=== PATIENT | female | born 1985 | race Caucasian/White ===

== ENCOUNTER 2018-04-24 17:38 | Emergency (ER) | payer MEDICAID, OTHER ==
[2018-04-24 17:38] VITALS: BMI 33.4
[2018-04-24 18:31] VITALS: RESP 18; TEMP 98.6
--- NOTE | 2018-04-24 19:34 | ED PDOC ---
Arrival/HPI - General Chief Complaint: Finger,Hand,&Wrist Time Seen by Provider: 04/24/18 19:29 Historian: Patient - History of Present Illness Narrative History of Present Illness (Text): 04/24/18 19:32 32-year-old female presents today with right hand pain. Patient states that a wooden kitchen chair fell on her hand. Pt states she tried to catch the top of the chair before it hit the ground. Patient states she has pain to the entire hand with the greatest pain is over the right thumb. She denies numbness weakness or tingling in the extremity but is complaining of pain with attempted range of motion. She denies any wrist pain. No medications have been taken for pain at home incident occurred prior to arrival. Past Medical History - Provider Review Nursing Documentation Reviewed: Yes - Travel History Have you recently traveled outside [place] w/in the past 3 mons?: No - Cardiac Hx Cardiac Disorders: No - Pulmonary Hx Respiratory Disorders: No - Neurological Hx Neurological Disorder: No - HEENT Hx HEENT Disorder: No - Renal Hx Renal Disorder: No - Endocrine/Metabolic Hx Endocrine Disorders: Yes (hx of gestational DM) - Hematological/Oncological Hx Blood Disorders: No - Integumentary Hx Dermatological Disorder: No - Musculoskeletal/Rheumatological Hx Musculoskeletal Disorders: No - Gastrointestinal Hx Gastrointestinal Disorders: No - Genitourinary/Gynecological Hx Genitourinary Disorders: No - Psychiatric Hx Psychophysiologic Disorder: No Hx Substance Use: No - Surgical History Hx Appendectomy: Yes Hx Section: Yes Hx Cholecystectomy: Yes - Anesthesia Hx Anesthesia: Yes Hx Anesthesia Reactions: No Hx Malignant Hyperthermia: No Family/Social History - Physician Review Nursing Documentation Reviewed: Yes Family/Social History: Unknown Family HX Smoking Status: Never Smoked Hx Alcohol Use: No Hx Substance Use: No Allergies/Home Meds Allergies/Adverse Reactions: Allergies No Known Allergies Allergy (Verified 04/24/18 18:31) Review of Systems - Review of Systems Constitutional: absent: Fatigue, Fevers Respiratory: absent: SOB, Cough Cardiovascular: absent: Chest Pain, Palpitations Gastrointestinal: absent: Abdominal Pain, Nausea, Vomiting Musculoskeletal: Arthralgias Skin: absent: Rash, Pruritis Neurological: absent: Headache, Dizziness Psychiatric: absent: Anxiety, Depression Physical Exam Vital Signs Reviewed: Yes Vital Signs Temp Pulse Resp BP Pulse Ox 04/24/18 19:42 98.6 F 85 18 132/78 98 04/24/18 18:28 98.6 F 88 18 122/85 97 Temperature: Afebrile Blood Pressure: Normal Pulse: Regular Respiratory Rate: Normal Appearance: Positive for: Well-Appearing, Non-Toxic, Comfortable Pain Distress: None Mental Status: Positive for: Alert and Oriented X 3 - Systems Exam Head: Present: Atraumatic Respiratory/Chest: Present: Clear to Auscultation Cardiovascular: Present: Regular Rate and Rhythm Upper Extremity: Present: NORMAL PULSES, Tenderness (Right hand: Tenderness over the entire thumb and thenar eminence limited flexion and extension of the thumb at the MCP and IP joint. no wrist tenderness, no snuff box tenderness. no tenderness over 2-5th metacarpals; full rom of 2-5th fingers. no edema, no erythema; no ecchymosis. Sensation and distal pulses intact. Cap refill less than 2), Swelling, Neurovascularly Intact. No: Normal ROM, Erythema, Deformity Neurological: Present: GCS=15 Skin: Present: Warm, Dry, Normal Color Psychiatric: Present: Alert, Oriented x 3 Medical Decision Making ED Course and Treatment: 04/24/18 19:34 Patient nontoxic well-appearing in no distress with stable vital signs X-rays of the right hand; no fracture pt refused medications for pain. 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 Patient placed in volar splint and thumb spica I discussed all results with patient advised to followup with the orthopedist for the next 2 days. Return if symptoms worsen persist or new symptoms develop Patient verbalizes understanding of discharge instructions and need for immediate followup. all aspects of this case were discussed the attending of record. Impression: hand pain, thumb pain Motrin every 6 hours as needed for pain Rest, ice, compression, elevation Followup with the orthopedist/hand specialist within the next 2 days Followup with primary care physician within the next 2 days Return if any other concerning symptoms develop - RAD Interpretation Radiology Orders: 04/24/18 19:29 HAND RIGHT 3 VIEWS [RAD] Stat Procedures - Splinting Location: right hand Hand-Made Type: fiberglass Splint: thumb spica (and volar splint placed) Pre-Proc Neuro Vasc Exam: normal Post-Proc Neuro Vasc Exam: normal Disposition/Present on Arrival - Present on Arrival Any Indicators Present on Arrival: No History of DVT/PE: No History of Uncontrolled Diabetes: No Urinary Catheter: No History of Decub. Ulcer: No History Surgical Site Infection Following: None - Disposition Have Diagnosis and Disposition been Completed?: Yes Diagnosis: Hand injury Disposition: HOME/ ROUTINE Disposition Time: 19:34 Patient Plan: Discharge Patient Problems: Current Active Problems Problem Status Onset Hand injury Acute Condition: GOOD Additional Instructions: Motrin every 6 hours as needed for pain Rest, ice, compression, elevation Followup with the orthopedist/hand specialist within the next 2 days Followup with primary care physician within the next 2 days Return if any other concerning symptoms develop Prescriptions: Ibuprofen [Motrin] 600 mg PO Q6H PRN #20 tab PRN Reason: pain/fever reduction Referrals: Jc Ibarra MD [Primary Care Provider] - Follow up with primary Miguel Land MD [Staff Provider] - Follow up with primary Akhil Moscoso MD [Staff Provider] - Follow up with primary [facility] [Outside] - Follow up with primary Oskar Jett MD [Staff Provider] - Follow up with primary Forms: [employer] (Khmer), WORK NOTE
[2018-04-24 20:09] VITALS: BP 132/78; PULSE 85; O2SAT 98
--- NOTE | 2018-04-25 10:41 | RAD ---
PROCEDURE: Right Hand Radiographs. HISTORY: right hand pain greatest at thumb COMPARISON: None. FINDINGS: BONES: Bone alignment and mineralization are normal. There is no acute displaced fracture or bone destruction. JOINTS: Normal. No osteoarthritic changes. SOFT TISSUES: Normal. OTHER FINDINGS: None. IMPRESSION: No acute fracture or dislocation.
== END 2018-04-24 19:42 | disposition home or self-care (01) ==
LOC: ED 17:38
DX: S69.91XA Unspecified injury of right wrist, hand and finger(s), initial encounter (principal); W20.8XXA Other cause of strike by thrown, projected or falling object, initial encounter

== ENCOUNTER 2018-06-08 14:54 | Emergency (ER) | payer MEDICAID ==
[2018-06-08 16:11] VITALS: BMI 37.8
[2018-06-08 16:14] VITALS: RESP 16
[2018-06-08] MEDS ORDERED: Sodium Chloride 0.9% 1,000 ML IV STA (16:33)
--- NOTE | 2018-06-08 16:37 | ED PDOC ---
Arrival/HPI - General Chief Complaint: Fever Time Seen by Provider: 06/08/18 16:21 Historian: Patient - History of Present Illness Narrative History of Present Illness (Text): 06/08/18 16:35 32 y/o female, no significant pmh, nkda, c/o nasal congestion/coughing/fever and bodyache x 2 days. Pt. stated that she has nasal congestion, associated with dry coughing, admits fever with febrile 101.6F in the ER with no antipyretic brea en for the past 8 hours, admits bodyache, no recent traveling, no chest pain or shortness of breath, no palpitation, no rash, no other medical or psychological complaints. Past Medical History - Provider Review Nursing Documentation Reviewed: Yes - Cardiac Hx Cardiac Disorders: No - Pulmonary Hx Respiratory Disorders: No - Neurological Hx Neurological Disorder: No - HEENT Hx HEENT Disorder: No - Renal Hx Renal Disorder: No - Endocrine/Metabolic Hx Endocrine Disorders: Yes (hx of gestational DM) - Hematological/Oncological Hx Blood Disorders: No - Integumentary Hx Dermatological Disorder: No - Musculoskeletal/Rheumatological Hx Musculoskeletal Disorders: No - Gastrointestinal Hx Gastrointestinal Disorders: No - Genitourinary/Gynecological Hx Genitourinary Disorders: No - Psychiatric Hx Psychophysiologic Disorder: No Hx Substance Use: No - Surgical History Hx Appendectomy: Yes Hx Section: Yes Hx Cholecystectomy: Yes - Anesthesia Hx Anesthesia: Yes Hx Anesthesia Reactions: No Hx Malignant Hyperthermia: No Family/Social History - Physician Review Nursing Documentation Reviewed: Yes Family/Social History: Unknown Family HX Smoking Status: Never Smoked Hx Alcohol Use: No Hx Substance Use: No Allergies/Home Meds Allergies/Adverse Reactions: Allergies No Known Allergies Allergy (Verified 06/08/18 16:11) Review of Systems - Review of Systems Constitutional: Fatigue, Fevers Eyes: absent: Vision Changes ENT: Rhinorrhea, Sinus Congestion. absent: Hearing Changes, Sore Throat Respiratory: Cough. absent: SOB, Sputum, Wheezing Cardiovascular: absent: Chest Pain, Palpitations Gastrointestinal: absent: Abdominal Pain, Diarrhea, Vomiting Musculoskeletal: absent: Arthralgias, Back Pain Skin: absent: Rash, Pruritis Neurological: absent: Headache, Dizziness Psychiatric: absent: Anxiety, Depression, Suicidal Ideation Physical Exam Vital Signs Reviewed: Yes Vital Signs Temp Pulse Resp BP Pulse Ox 06/08/18 16:11 101.6 F H 107 H 16 102/58 L 100 Temperature: Febrile Blood Pressure: Normal Pulse: Tachycardic Respiratory Rate: Normal Appearance: Positive for: Well-Appearing, Non-Toxic Pain Distress: Moderate Mental Status: Positive for: Alert and Oriented X 3 - Systems Exam Head: Present: Atraumatic, Normocephalic, Other (+ttp on the frontal sinus) Pupils: Present: PERRL Extroacular Muscles: Present: EOMI Conjunctiva: Present: Normal Ears: Present: NORMAL TM, Normal Canal. No: Erythema Mouth: Present: Moist Mucous Membranes Pharnyx: No: ERYTHEMA, EXUDATE, TONSILS ENLARGED Nose (External): Present: Atraumatic. No: Abrasion, Contusion, Laceration Nose (Internal): Present: Normal Inspection, No Active Bleeding, Rhinorrhea. No: Septal Hematoma, Epistaxis Neck: Present: Normal Range of Motion, Trachea Midline. No: Meningeal Signs, MIDLINE TENDERNESS, Paraspinal Tenderness, Lymphadenopathy Respiratory/Chest: Present: Clear to Auscultation, Good Air Exchange. No: Respiratory Distress, Accessory Muscle Use, Wheezes, Decreased Breath Sounds, Rales, Retracting, Rhonchi Cardiovascular: Present: Regular Rate and Rhythm, Normal S1, S2. No: Murmurs Abdomen: No: Tenderness, Distention, Peritoneal Signs, Rebound, Guarding Back: Present: Normal Inspection. No: CVA Tenderness, Midline Tenderness, Paraspinal Tenderness, Pain with Leg Raise, Decubitus Ulcer Upper Extremity: Present: Normal Inspection. No: Cyanosis, Edema Lower Extremity: Present: Normal Inspection. No: Edema Neurological: Present: GCS=15, CN II-XII Intact, Speech Normal, Motor Func Grossly Intact, Gait Normal, Memory Normal Skin: Present: Warm, Dry, Normal Color. No: Rashes Psychiatric: Present: Alert, Oriented x 3, Normal Insight, Normal Concentration Medical Decision Making ED Course and Treatment: 06/08/18 16:38 -Labs/rapid flu/ua -CXR -IVF/tylenol -Observe and reassess 06/08/18 18:15 -CBC within normal limit -Pt. refused labs/radiology study, evaluation and IV medications including antibiotics/antiviral, stated that she has kids at home and have to go. I explained that leaving is not the definitive choice for standard of care, pt. verbally expressed understanding. -Pt. refused repeat vital signs as well. AMA ER The patient refuses to stay in the Emergency Room (ER) to continue the care and wishes to leave the emergency department against my medical advice. Patient was told that staying in the ER is necessary and a full explanation of the reasons why was given, and understood by the patient with alert and oriented x4. The risk of leaving were explained in laymans term and including but not limited to influenza, sinusitis, meningitis, sepsis, organ failure, influenza, disability, pain, worsening of condition, permanent disability and from an undiagnosed or untreated condition. The patient accepts these risks, and is in my judgment is competent and capable of understanding the clinical situation and explanation of the risk of leaving. The patient is able to verbally repeat me back the above explained risks and benefits back to me, and verbally expressed understanding. Patient was given the opportunity to ask questions and change mind. The patient was instructed regarding the best care for the present symptoms, and to follow up as soon as possible with the primary care doctor including specialist or return to the emergency department at any time for continuing care. You sign out against medical advice. You are given tamiflu/augmentin/claritin d24/tessolon/motrin but this is not the best standard of care. You are advised to stay in the hospital for blood work/xray/additional treatment but you declined. You can return to the ER anytime as you would like to for continuity of care. Please follow up with your own pmd and specialist within 1-2 days, return to the ER for any new or worsening signs or symptoms. - RAD Interpretation Radiology Orders: 06/08/18 16:33 CHEST TWO VIEWS (PA/LAT) [RAD] Stat Ordered but the patient declined. Heating And Ventilating Drafter: Radiologist - PA / CLASSIFIER TENDER / Resident Statement MD/DO has reviewed & agrees with the documentation as recorded. Disposition/Present on Arrival - Present on Arrival Any Indicators Present on Arrival: No History of DVT/PE: No History of Uncontrolled Diabetes: No Urinary Catheter: No History of Decub. Ulcer: No History Surgical Site Infection Following: None - Disposition Have Diagnosis and Disposition been Completed?: Yes Diagnosis: Flu-like symptoms, URI (upper respiratory infection), UTI (urinary tract infection), Non-compliance Disposition: AGAINST MEDICAL ADVICE Disposition Time: 18:16 Patient Problems: Current Active Problems Problem Status Onset Flu-like symptoms Acute Non-compliance Acute URI (upper respiratory infection) Acute UTI (urinary tract infection) Acute Condition: GOOD Additional Instructions: You sign out against medical advice. You are given tamiflu/augmentin/claritin d24/tessolon/motrin but this is not the best standard of care. You are advised to stay in the hospital for blood work/xray/additional treatment but you declined. You can return to the ER anytime as you would like to for continuity of care. Please follow up with your own pmd and specialist within 1-2 days, return to the ER for any new or worsening signs or symptoms. Prescriptions: Amoxicillin/Clavulanate [Augmentin 875 MG-125 MG] 1 tab PO BID #14 tab Benzonatate [Tessalon Perles] 100 mg PO TID PRN #30 sgl PRN Reason: Other Ibuprofen [Motrin] 600 mg PO QID PRN #30 tab PRN Reason: Other Loratadine/Pseudoephedrine [Claritin-D 24 Hour Tablet] 1 each PO DAILY PRN #7 tab.er.24h PRN Reason: Other Oseltamivir Phosphate [Tamiflu] 75 mg PO BID #10 capsule Referrals: Lucho Ventura MD [Staff Provider] - Follow up with primary Gustavo Chavarria DO [Doctor Osteopathy] - Follow up with primary [facility] [place] [Outside] - Follow up with primary Forms: [employer] ([place]), WORK NOTE
[2018-06-08 17:57] LABS: URINE BILIRUBIN NEGATIVE (NEGATIVE); URINE BLOOD TRACE-INTACT (NEGATIVE); URINE GLUCOSE (UA) NEGATIVE (NEGATIVE); URINE LEUKOCYTE ESTERASE MODERATE Leu/uL (NEGATIVE); URINE PROTEIN 30 mg/dL (<30 mg/dL); URINE UROBILINOGEN 0.2 E.U./dL (<1 E.U./dL)
[2018-06-08 17:59] LABS: BASO # 0.02 K/mm3 (0.0-2.0); BASO % 0.3 % (0.0-3.0); EOS % 0.3 % (1.5-5.0); GRAN # 5.49 (1.4-6.5); GRAN % 71.8 % (50.0-68.0); HEMOGLOBIN 12.4 g/dL (12.0-16.0); LYMPH # 1.6 (1.2-3.4); LYMPH % 21.2 % (22.0-35.0); MEAN CELL VOLUME 82.5 fl (80.0-105.0); MEAN CORPUSCULAR HEMOGLOBIN 26.7 pg (25.0-35.0); MEAN CORPUSCULAR HGB CONC 32.4 g/dl (31.0-37.0); MEAN PLATELET VOLUME 10.1 fl (7.0-11.0); MONO # 0.5 (0.1-0.6); MONO % 6.4 % (1.0-6.0); RBC 4.64 10^6/uL (3.5-6.1); RED CELL DISTRIBUTION WIDTH 14.5 % (11.5-14.5); WHITE BLOOD COUNT 7.6 10^3/ul (4.5-11.0)
[2018-06-08 18:03] LABS: URINE APPEARANCE CLEAR (CLEAR)
[2018-06-08 18:09] LABS: URINE AMORPHOUS SEDIMENT TRACE; URINE BACTERIA TRACE (NEG); URINE EPITHELIAL CELLS MANY /hpf (0-5)
[2018-06-08 18:41] VITALS: BP 111/60; PULSE 99; O2SAT 99
[2018-06-08 18:42] VITALS: TEMP 101
== END 2018-06-08 18:44 | disposition left against medical advice (07) ==
LOC: ED 14:54
DX: J11.1 Influenza due to unidentified influenza virus with other respiratory manifestations (principal); J06.9 Acute upper respiratory infection, unspecified; N39.0 Urinary tract infection, site not specified; Z91.19 Patient's noncompliance with other medical treatment and regimen
CPT/HCPCS: 81001; 85025; 87086; 87804; 96360; 99284; J7030

== ENCOUNTER 2018-08-17 15:30 | Emergency (ER) | payer MEDICAID ==
[2018-08-17 15:53] VITALS: BMI 35.1
[2018-08-17] MEDS ORDERED: Lactated Ringer's 1,000 ML IV STA (16:10)
[2018-08-17 16:28] VITALS: TEMP 98.2
[2018-08-17 17:11] LABS: BASO # 0.01 K/mm3 (0.0-2.0); BASO % 0.1 % (0.0-3.0); EOS % 0.3 % (1.5-5.0); GRAN # 9.3 (1.4-6.5); GRAN % 87.7 % (50.0-68.0); HEMOGLOBIN 13.1 g/dL (12.0-16.0); LYMPH # 0.9 (1.2-3.4); LYMPH % 8.8 % (22.0-35.0); MEAN CELL VOLUME 82.5 fl (80.0-105.0); MEAN CORPUSCULAR HGB CONC 32.7 g/dl (31.0-37.0); MEAN PLATELET VOLUME 9.4 fl (7.0-11.0); MONO # 0.3 (0.1-0.6); MONO % 3.1 % (1.0-6.0); RBC 4.86 10^6/uL (3.5-6.1); RED CELL DISTRIBUTION WIDTH 13.9 % (11.5-14.5); WHITE BLOOD COUNT 10.6 10^3/uL (4.5-11.0)
[2018-08-17 17:19] LABS: INR 0.92; PARTIAL THROMBOPLASTIN TIME 26.1 Seconds (25.1-36.5); PROTHROMBIN TIME 10.5 SECONDS (9.4-12.5)
[2018-08-17 17:25] LABS: ALB/GLOB RATIO 1.2 (1.1-1.8); ALBUMIN 4.1 g/dL (3.0-4.8); ALT/SGPT 30 U/L (7-56); AMYLASE 60 U/L (35-125); AST/SGOT 38 U/L (14-36); BLOOD UREA NITROGEN 19 mg/dL (7-21); GFR NON-AFRICAN AMERICAN > 60; LIPASE 37 U/L (23-300)
[2018-08-17 17:36] LABS: TROPONIN I < 0.01 ng/mL
[2018-08-17 18:08] LABS: URINE BILIRUBIN NEGATIVE (NEGATIVE); URINE BLOOD TRACE-INTACT (NEGATIVE); URINE GLUCOSE (UA) NEGATIVE (NEGATIVE); URINE LEUKOCYTE ESTERASE MODERATE Leu/uL (NEGATIVE); URINE PROTEIN NEGATIVE mg/dL (<30 mg/dL); URINE UROBILINOGEN 0.2 E.U./dL (<1 E.U./dL)
--- NOTE | 2018-08-17 18:08 | ED PDOC ---
Arrival/HPI - General Chief Complaint: Abdominal Pain Time Seen by Provider: 08/17/18 16:00 Historian: Patient - History of Present Illness Narrative History of Present Illness (Text): 33 y/o female with PMH of appendectomy, cholecystectomy presents to the ED c/o vomiting x 1 day. Patient had approximately 10 episodes of non-bloody, non- bilious vomiting this morning. Associated nausea, right flank pain, and epigastric and right sided abdominal pain. Having BM per baseline, last yesterday afternoon. Unable to tolerate PO. Denies fever, chills, diarrhea, chest pain, SOB, cough, sinus congestion, diaphoresis, palpitations, urinary symptoms, weakness, numbness, paresthesias, headache, pelvic pain, vaginal discharge, vaginal bleeding, or any other associated symptoms. Past Medical History - Provider Review Nursing Documentation Reviewed: Yes - Cardiac Hx Cardiac Disorders: No - Pulmonary Hx Respiratory Disorders: No - Neurological Hx Neurological Disorder: No - HEENT Hx HEENT Disorder: No - Renal Hx Renal Disorder: No - Endocrine/Metabolic Hx Endocrine Disorders: Yes (hx of gestational DM) - Hematological/Oncological Hx Blood Disorders: No - Integumentary Hx Dermatological Disorder: No - Musculoskeletal/Rheumatological Hx Musculoskeletal Disorders: No - Gastrointestinal Hx Gastrointestinal Disorders: No - Genitourinary/Gynecological Hx Genitourinary Disorders: No - Psychiatric Hx Psychophysiologic Disorder: No Hx Substance Use: No - Surgical History Hx Appendectomy: Yes Hx Section: Yes Hx Cholecystectomy: Yes - Anesthesia Hx Anesthesia: Yes Hx Anesthesia Reactions: No Hx Malignant Hyperthermia: No Family/Social History - Physician Review Nursing Documentation Reviewed: Yes Family/Social History: No Known Family HX Smoking Status: Never Smoked Hx Alcohol Use: No Hx Substance Use: No Allergies/Home Meds Allergies/Adverse Reactions: Allergies No Known Allergies Allergy (Verified 08/17/18 15:56) Review of Systems - Physician Review All systems were reviewed & negative as marked: Yes - Review of Systems Constitutional: Normal Eyes: Normal. absent: Vision Changes, Photophobia, Eye Pain, Other ENT: Normal. absent: Hearing Changes, Tinnitus, TMJ Pain, Voice Changes, Sore Throat, Rhinorrhea, Epistaxis, Sinus Congestion, Other Respiratory: Normal. absent: SOB, Cough, Sputum, Wheezing, Other Cardiovascular: Normal. absent: Chest Pain, Palpitations, Edema, Calf Pain, العر[place], Orthopnea, SY, Syncope, Other Gastrointestinal: Abdominal Pain, Nausea, Vomiting, Appetite Changes. absent: Stool Changes Genitourinary Female: Normal. absent: Dysuria, Frequency, Hematuria, Urine Output Changes, Vaginal Bleeding, Vaginal Discharge, Other Musculoskeletal: Back Pain Skin: Normal. absent: Rash, Pruritis, Skin Lesions, Laceration, Abscess, Ulcer, Cellulitis, Other Neurological: Normal. absent: Headache, Dizziness, Focal Weakness, Gait Changes, Speech Changes, SC, Facial Droop, DE, Disequilibrium, SE, Seizure, Other Endocrine: Normal Hemo/Lymphatic: Normal Psychiatric: Normal Physical Exam Vital Signs Reviewed: Yes Vital Signs Temp Pulse Resp BP Pulse Ox 08/17/18 16:27 98.2 F 120 H 99 H 138/84 100 08/17/18 15:53 120 H 18 138/84 98 Temperature: Afebrile Blood Pressure: Normal Pulse: Tachycardic Respiratory Rate: Normal Appearance: Positive for: Well-Appearing, Non-Toxic, Comfortable Pain Distress: None Mental Status: Positive for: Alert and Oriented X 3 - Systems Exam Head: Present: Atraumatic, Normocephalic Pupils: Present: PERRL Extroacular Muscles: Present: EOMI Conjunctiva: Present: Normal Mouth: Present: Moist Mucous Membranes Neck: Present: Normal Range of Motion. No: Meningeal Signs Respiratory/Chest: Present: Clear to Auscultation, Good Air Exchange. No: Respiratory Distress, Accessory Muscle Use Cardiovascular: Present: Regular Rate and Rhythm, Normal S1, S2, Peripheal Pulses Present. No: Murmurs Abdomen: Present: Tenderness (epigastric), Normal Bowel Sounds. No: Distention, Peritoneal Signs, Rebound, Guarding Back: Present: Normal Inspection, CVA Tenderness (bilateral; R>L) Upper Extremity: Present: Normal Inspection, Normal ROM, NORMAL PULSES, Neurovas cularly Intact, Capillary Refill < 2s. No: Cyanosis, Edema Lower Extremity: Present: Normal Inspection, NORMAL PULSES, Normal ROM, Neurovascularly Intact, Capillary Refill < 2 s. No: Edema Neurological: Present: GCS=15, CN II-XII Intact, Speech Normal, Motor Func Grossly Intact, Normal Sensory Function, Gait Normal Skin: Present: Warm, Dry, Normal Color. No: Rashes Lymphatic: No: Cervical Adenopathy Psychiatric: Present: Alert, Oriented x 3, Normal Insight, Normal Concentration, Normal Affect, Normal Mood Medical Decision Making ED Course and Treatment: Initial Plan: * CBC, CMP * Lipase * UA, urine culture * Cardiac Iso * EKG * CXR * CT Abd/Pelvis with IV contrast * IVF * Pepcid * Zofran 18:30 Patient reports resolution of her abdominal pain after medications. 19:30 Patient wishes to sign out AMA, pending EKG and CT Abd/Pelvis with IV contrast. States she has to go home to be with her children. UA shows moderate leuk esterase. Patient with CVA tenderness. Will empirically treat for pyelonephritis. 20:00 Patient left AMA. Risks of leaving discussed at length with patient, including , disability, and worsening of symptoms. Pt verbalized understanding and was given the opportunity to ask questions. Patient A&Ox3, capable of making informed decisions. Diagnostic testing results discussed with patient, and strict instructions given regarding importance of follow up, and signs to return to Emergency Department, to include desire for re-evaluation or any other new/worsening symptoms. Patient verbalizes understanding of discussion. Patient A&Ox3, ambulating with steady gait, tachycardic at discharge. - Lab Interpretations Lab Results: 08/17/18 17:04 08/17/18 17:04 Lab Results 08/17/18 17:04: Sodium 136, Potassium 4.0, Chloride 103, Carbon Dioxide 23, Anion Gap 15, BUN 19, Creatinine 0.5 L, Est GFR ( Amer) > 60, Est GFR (Non-Af Amer) > 60, Random Glucose 96, Calcium 9.0, Total Bilirubin 0.4, AST 38 H D, ALT 30, Alkaline Phosphatase 55, Lactate Dehydrogenase 373, Total Creatine Kinase 42, Troponin I < 0.01, Total Protein 7.6, Albumin 4.1, Globulin 3.5, Albumin/Globulin Ratio 1.2, Amylase 60, Lipase 37 08/17/18 17:04: PT 10.5, INR 0.92, APTT 26.1 08/17/18 17:04: WBC 10.6, RBC 4.86, Hgb 13.1, Hct 40.1, MCV 82.5, MCH 27.0, MCHC 32.7, RDW 13.9, Plt Count 410, MPV 9.4, Gran % 87.7 H, Lymph % (Auto) 8.8 L, [place] % (Auto) 3.1, Eos % (Auto) 0.3 L, Baso % (Auto) 0.1, Gran # 9.30 H, Lymph # (Auto) 0.9 L, [place] # (Auto) 0.3, Eos # (Auto) 0.0, Baso # (Auto) 0.01 I have reviewed the lab results: Yes - RAD Interpretation Radiology Orders: 08/17/18 16:11 CHEST PORTABLE [RAD] Stat 08/17/18 16:13 ABD & PELVIS IV CONTRAST ONLY [CT] Stat - Medication Orders Current Medication Orders: Lactated Ringer's (Lactated Ringer's) 1,000 mls @ 100 mls/hr IV .Q10H STA Stop: 08/18/18 02:09 Last Admin: 08/17/18 17:09 Dose: 100 mls/hr eMAR Start Stop Document 08/17/18 17:09 EB (Rec: 08/17/18 17:09 EB [facility] [id number]-) Intravenous Solution Start Date 08/17/18 Start Time 17:09 End Date 08/18/18 End time 03:09 Total Infusion Time 600 Discontinued Medications Famotidine (Pepcid) 20 mg IVP STAT STA Stop: 08/17/18 16:11 Last Admin: 08/17/18 16:38 Dose: 20 mg IVP Administration Document 08/17/18 16:38 EB (Rec: 08/17/18 16:38 EB [facility] [id number]-) Charges for Administration # of IVP Administrations 1 Ondansetron HCl (Zofran Inj) 4 mg IVP STAT STA Stop: 08/17/18 16:11 Last Admin: 08/17/18 16:38 Dose: 4 mg IVP Administration Document 08/17/18 16:38 EB (Rec: 08/17/18 16:38 [id number]-) Charges for Administration # of IVP Administrations 1 Disposition/Present on Arrival - Present on Arrival Any Indicators Present on Arrival: No History of DVT/PE: No History of Uncontrolled Diabetes: No Urinary Catheter: No History of Decub. Ulcer: No History Surgical Site Infection Following: None - Disposition Have Diagnosis and Disposition been Completed?: No Diagnosis: Abdominal pain, UTI (urinary tract infection) Disposition: AGAINST MEDICAL ADVICE Disposition Time: 20:00 Patient Plan: Discharge Patient Problems: Current Active Problems Problem Status Onset Abdominal pain Acute UTI (urinary tract infection) Acute Condition: GOOD Discharge Instructions (ExitCare): Leaving Against Medical Advice Additional Instructions: Take antibiotics as prescribed Followup with primary doctor as soon as possible Return to ER if you wish to be re-evaluated Prescriptions: Ciprofloxacin HCl [Cipro] 500 mg PO Q12H 10 Days #20 tablet Forms: [employer] (Citizen [place])
--- NOTE | 2018-08-17 18:10 | RAD ---
Date of service: 08/17/2018 HISTORY: epigastric abdominal pain COMPARISON: No prior. FINDINGS: LUNGS: No active pulmonary disease. PLEURA: No significant pleural effusion identified, no pneumothorax apparent. CARDIOVASCULAR: No aortic atherosclerotic calcification present. Normal cardiac size. No pulmonary vascular congestion. OSSEOUS STRUCTURES: No significant abnormalities. VISUALIZED UPPER ABDOMEN: Normal. OTHER FINDINGS: None. IMPRESSION: No active disease.
[2018-08-17 18:23] LABS: URINE APPEARANCE CLOUDY (CLEAR)
[2018-08-17 18:40] LABS: URINE AMORPHOUS SEDIMENT SMALL
[2018-08-17] MEDS ORDERED: Sodium Chloride 0.9% 1,000 ML IV STA (18:40)
[2018-08-18 03:44] VITALS: BP 125/89; PULSE 107; RESP 18; O2SAT 100
== END 2018-08-17 20:00 | disposition left against medical advice (07) ==
LOC: ED 15:30
DX: N39.0 Urinary tract infection, site not specified (principal); R10.13 Epigastric pain
CPT/HCPCS: 71045; 80053; 81001; 82150; 82550; 83615; 83690; 84484; 85025; 85610; 85730; 87086; 96361; 96374; 96375; 99285; J2405; J7030; J7120

== ENCOUNTER 2018-10-23 21:38 | Emergency (ER) | payer MEDICAID ==
[2018-10-23 21:38] VITALS: BMI 35.1
[2018-10-23 21:51] VITALS: RESP 18
--- NOTE | 2018-10-23 22:05 | ED PDOC ---
Arrival/HPI - General Chief Complaint: Flu-like Symptoms Time Seen by Provider: 10/23/18 21:54 Historian: Patient - History of Present Illness Narrative History of Present Illness (Text): 10/23/18 22:06 33 year old female, whose past medical history includes appendectomy and cholecystectomy, presents to the emergency department complaining of fever, body aches, and nausea since yesterday. Patient denies any sick contact or recent travel. Patient denies any chills, cough, URI, chest pain, shortness of breath, abdominal pain, vomiting, diarrhea, urinary symptoms, back pain, neck pain, headache, dizziness, or any other complaints. Time/Duration: 24 hours Symptom Onset: Gradual Symptom Course: Unchanged Activities at Onset: Light Context: Home Past Medical History - Provider Review Nursing Documentation Reviewed: Yes - Cardiac Hx Cardiac Disorders: No - Pulmonary Hx Respiratory Disorders: No - Neurological Hx Neurological Disorder: No - HEENT Hx HEENT Disorder: No - Renal Hx Renal Disorder: No - Endocrine/Metabolic Hx Endocrine Disorders: Yes (hx of gestational DM) - Hematological/Oncological Hx Blood Disorders: No - Integumentary Hx Dermatological Disorder: No - Musculoskeletal/Rheumatological Hx Musculoskeletal Disorders: No - Gastrointestinal Hx Gastrointestinal Disorders: No - Genitourinary/Gynecological Hx Genitourinary Disorders: No - Psychiatric Hx Psychophysiologic Disorder: No Hx Substance Use: No - Surgical History Hx Appendectomy: Yes Hx Section: Yes Hx Cholecystectomy: Yes - Anesthesia Hx Anesthesia: Yes Hx Anesthesia Reactions: No Hx Malignant Hyperthermia: No Family/Social History - Physician Review Nursing Documentation Reviewed: Yes Family/Social History: No Known Family HX Smoking Status: Never Smoked Hx Alcohol Use: No Hx Substance Use: No Allergies/Home Meds Allergies/Adverse Reactions: Allergies No Known Allergies Allergy (Verified 08/17/18 15:56) Review of Systems - Physician Review All systems were reviewed & negative as marked: Yes - Review of Systems Constitutional: Fevers. absent: Other (chills) Respiratory: absent: SOB, Cough, Other (URI) Cardiovascular: absent: Chest Pain Gastrointestinal: Nausea. absent: Abdominal Pain, Diarrhea, Vomiting Genitourinary Female: absent: Dysuria, Frequency, Hematuria Musculoskeletal: Other (bodyaches). absent: Back Pain, Neck Pain Neurological: absent: Headache, Dizziness Physical Exam Vital Signs Reviewed: Yes Vital Signs Temp Pulse Resp BP Pulse Ox 10/23/18 21:38 102.8 F H 129 H 18 100/65 100 Temperature: Febrile Blood Pressure: Normal Pulse: Tachycardic Respiratory Rate: Normal Appearance: Positive for: Well-Appearing, Non-Toxic, Comfortable Pain Distress: Mild Mental Status: Positive for: Alert and Oriented X 3 - Systems Exam Head: Present: Atraumatic, Normocephalic Pupils: Present: PERRL Extroacular Muscles: Present: EOMI Conjunctiva: Present: Normal Mouth: Present: Moist Mucous Membranes Neck: Present: Normal Range of Motion Respiratory/Chest: Present: Clear to Auscultation, Good Air Exchange. No: Respiratory Distress, Accessory Muscle Use Cardiovascular: Present: Regular Rate and Rhythm, Normal S1, S2. No: Murmurs Abdomen: No: Tenderness, Distention, Peritoneal Signs Back: Present: Normal Inspection Upper Extremity: Present: Normal Inspection. No: Cyanosis, Edema Lower Extremity: Present: Normal Inspection. No: Edema Neurological: Present: GCS=15, CN II-XII Intact, Speech Normal Skin: Present: Warm, Dry, Normal Color. No: Rashes Psychiatric: Present: Alert, Oriented x 3, Normal Insight, Normal Concentration Medical Decision Making ED Course and Treatment: 10/23/18 21:55 Impression: 33 year old female presents complaining of fever, body aches, and nausea that began yesterday. PE benign. Plan: -- Motrin, Tamiflu, Zofran -- Reassess and disposition Progress Notes: 10/23/18 22:05 Repeat VS : T 100.1 P 89 R 18 O2sat 98 %RA BP 105/68 Patient is in no acute distress, tolerating po fluids. Diagnosis of likely flu d/w the patient. I have discussed the plan with the patient, who expresses understanding. Patient in agreement with plan to be discharged home. Patient is stable for discharge. Patient was instructed to follow up with physician or return if symptoms worsen or new concerning symptoms arise. - Medication Orders Current Medication Orders: Ondansetron HCl (Zofran Odt) 4 mg PO STAT STA Stop: 10/23/18 22:04 Oseltamivir Phosphate (Tamiflu Cap) 75 mg PO STAT STA; Protocol Stop: 10/23/18 22:04 Discontinued Medications Ibuprofen (Motrin Tab) 800 mg PO STAT STA Stop: 02/22/19 21:56 - PA / FEED ADVISER / Resident Statement MD/DO has reviewed & agrees with the documentation as recorded. - Scribe Statement The provider has reviewed the documentation as recorded by the Horacio Paige Provider Horacio Attestation: All medical record entries made by the Horacio were at my direction and personally dictated by me. I have reviewed the chart and agree that the record accurately reflects my personal performance of the history, physical exam, medical decision making, and the department course for this patient. I have also personally directed, reviewed, and agree with the discharge instructions and disposition. Disposition/Present on Arrival - Present on Arrival Any Indicators Present on Arrival: No History of DVT/PE: No History of Uncontrolled Diabetes: No Urinary Catheter: No History of Decub. Ulcer: No History Surgical Site Infection Following: None - Disposition Have Diagnosis and Disposition been Completed?: Yes Diagnosis: Fever, Flu Disposition: HOME/ ROUTINE Disposition Time: 22:00 Patient Plan: Discharge Condition: STABLE Discharge Instructions (ExitCare): Flu, Fever, Adult (DC) Additional Instructions: Thank you for letting us take care of you today. You were treated for fever, flu. The emergency medical care you received today was directed at your acute symptoms. If you were prescribed any medication, please fill it and take as directed. It may take several days for your symptoms to resolve. Return to the Emergency Department if your symptoms worsen, do not improve, or if you have any other problems. Please contact your doctor in 2 days for re-evaluation and follow up / or call one of the physicians/clinics you have been referred to that are listed on the Patient Visit Information form that is included in your discharge packet. Bring any paperwork you were given at discharge with you along with any medications you are taking to your follow up visit. Our treatment cannot replace ongoing medical care by a primary care provider (PCP) outside of the emergency department. [facility]. Prescriptions: Ibuprofen [Motrin Tab] 800 mg PO TID PRN #20 tab PRN Reason: Fever >100.4 F Ondansetron ODT [Zofran ODT] 4 mg PO DAILY PRN #20 odt PRN Reason: Nausea/Vomiting Oseltamivir Phosphate [Tamiflu] 75 mg PO BID #10 capsule Ref[place]: [facility] [place] - Follow up with primary [employer] [facility], [Primary Care Provider] - Follow up with primary Forms: [employer] (Japanese), WORK NOTE
[2018-10-23 23:17] VITALS: BP 105/68; PULSE 89; TEMP 100.1; O2SAT 98
== END 2018-10-23 22:45 | disposition home or self-care (01) ==
LOC: ED 21:38
DX: J11.1 Influenza due to unidentified influenza virus with other respiratory manifestations (principal); R50.9 Fever, unspecified